=== PATIENT | male | born 1955 | race Caucasian/White ===

== ENCOUNTER 2016-11-01 09:55 | Day surgery (SDC) | payer OTHER ==
[~2016-11-01] VITALS: Ht 183 cm; Wt 122.7 kg
[2016-11-01] VITALS (13 sets, daily range): BP systolic 100–119; BP diastolic 66–86; PULSE 51–123; TEMP 97.8–98.3
[~2016-11-01 09:55] MED LIST: BETAPACE 120MG120 MG PO; CARDIZEM120 MG PO; COUMADIN 5MG5 MG/TAB PO; COUMADIN 77.5 MG/TAB PO; FLOMAX 0.40.4 MG/CAP PO; FLUOROURACIL5% TP; GLUCOSAMINE & C1 CA1 PO; GLUCOSAMINE500 MG PO; HCTZ 25MG TAB25 MG PO; HYDROCORTISO28.35 G1 TOP; LIPITOR 10MG10 MG PO; LIPITOR 40MG TA40 MG PO; MULTAQ400 MG PO; NAFTIN11 TP; NATURAL E400 IU PO; PRADAXA75 MG PO; PRIL40 PO; PRINIVIL40 MG PO; PROBIOTIC FORMU1 CAP PO; PROSCAR 5MG5 MG PO; THERAPEUTIC VIT1 CAP PO; TIAZAC180 MG PO; TIKOSYN0.5 MG PO; TOPROL XL 25MG25 MG PO; VITAMIN E 400 U4001 PO; ZESTRIL 5MG5 MG PO; ZYRTEC 10MG10 MG PO; [UNRECOGNIZED DRUG - OTHER]
[2016-11-01 10:58] LABS: POTASSIUM 4.5 mmol/L (3.4-5.0)
[2016-11-01 11:00] LABS: INR 1.2 (0.8-3.0); PROTHROMBIN TIME 13.3 SECONDS (9.7-12.8)
[2016-11-01 11:31] LABS: THYROID STIMULATING HORMONE 1.74 uIU/mL (0.465-4.680)
== END 2016-11-01 12:34 | disposition home or self-care (01) ==
LOC: EUO 09:55 → COL.RAD 10:15 → EUO 12:34
PROVIDERS: Internal Medicine Cardiovascular Disease
DX: I48.1 Persistent atrial fibrillation (principal); I25.10 Atherosclerotic heart disease of native coronary artery without angina pectoris; Z79.899 Other long term (current) drug therapy; E78.5 Hyperlipidemia, unspecified; I42.9 Cardiomyopathy, unspecified; I34.0 Nonrheumatic mitral (valve) insufficiency; Z86.010 Personal history of colon polyps; M19.90 Unspecified osteoarthritis, unspecified site; Z79.02 Long term (current) use of antithrombotics/antiplatelets
CPT/HCPCS: J2250; J3010

== ENCOUNTER 2017-08-18 07:19 | Day surgery (SDC) | payer OTHER ==
[2017-08-18] VITALS (14 sets, daily range): BP systolic 90–148; BP diastolic 67–98; PULSE 54–114; TEMP 97.6
[~2017-08-18] VITALS: Ht 182.9 cm; Wt 129.0 kg
[2017-08-18 07:56] LABS: INR 1.2 (0.8-3.0); PROTHROMBIN TIME 12.8 SECONDS (9.7-12.8)
[2017-08-18 08:00] LABS: HEMATOCRIT 44.4 % (42.0-52.0); MEAN CELL VOLUME 94 fl (80.0-100.0); MEAN CORPUSCULAR HEMOGLOBIN 32 pg (27.0-31.0); MEAN CORPUSCULAR HGB CONC 34 g/dl (33.0-37.0); MEAN PLATELET VOLUME 9.4 fl (7.4-10.4); PLATELET COUNT 217 K/mm3 (130-400); RED BLOOD COUNT 4.74 M/mm3 (4.20-5.60); WHITE BLOOD COUNT 7.8 K/mm3 (4.8-10.8)
[2017-08-18 08:12] LABS: CALCIUM 9.3 mg/dL (8.4-10.2); CREATININE, serum 0.96 mg/dL (0.66-1.25)
== END 2017-08-18 12:26 | disposition home or self-care (01) ==
LOC: COL.CAR 07:19
PROVIDERS: Internal Medicine Cardiovascular Disease
DX: I48.91 Unspecified atrial fibrillation (principal); I34.0 Nonrheumatic mitral (valve) insufficiency; I25.10 Atherosclerotic heart disease of native coronary artery without angina pectoris; Z79.01 Long term (current) use of anticoagulants; I10 Essential (primary) hypertension; G47.30 Sleep apnea, unspecified; I42.8 Other cardiomyopathies; E66.9 Obesity, unspecified; R00.1 Bradycardia, unspecified
CPT/HCPCS: J2250; J3010

== ENCOUNTER 2018-06-18 09:44 | Day surgery (SDC) | payer OTHER ==
[2018-06-18] VITALS (8 sets, daily range): BP systolic 91–128; BP diastolic 62–89; PULSE 52–89
[~2018-06-18] VITALS: Ht 182.9 cm; Wt 132.8 kg
[2018-06-18 10:12] LABS: POTASSIUM 4.1 mmol/L (3.4-5.0)
[2018-06-18 10:18] LABS: INR 1.2 (0.8-3.0); PROTHROMBIN TIME 13.2 SECONDS (9.7-12.8)
[2018-06-18] MEDS ORDERED: TAMBOCOR50 MG PO (10:37)
[2018-06-18 10:47] LABS: THYROID STIMULATING HORMONE 2.26 uIU/mL (0.465-4.680)
== END 2018-06-18 13:57 | disposition home or self-care (01) ==
LOC: COL.CAR 09:44
PROVIDERS: Internal Medicine Cardiovascular Disease
DX: I48.1 Persistent atrial fibrillation (principal); I25.10 Atherosclerotic heart disease of native coronary artery without angina pectoris; G47.33 Obstructive sleep apnea (adult) (pediatric); I10 Essential (primary) hypertension; I48.0 Paroxysmal atrial fibrillation; K76.0 Fatty (change of) liver, not elsewhere classified; M19.90 Unspecified osteoarthritis, unspecified site; G89.29 Other chronic pain; E66.9 Obesity, unspecified; Z68.38 Body mass index [BMI] 38.0-38.9, adult; Z79.82 Long term (current) use of aspirin; Z79.01 Long term (current) use of anticoagulants; Z82.5 Family history of asthma and other chronic lower respiratory diseases
CPT/HCPCS: J2250; J3010; J7030

== ENCOUNTER 2018-10-16 08:10 | Day surgery (SDC) | payer OTHER ==
[~2018-10-16] VITALS: Ht 182.9 cm; Wt 133.9 kg
[2018-10-16] VITALS (7 sets, daily range): BP systolic 112–123; BP diastolic 72–81; PULSE 77–96; TEMP 98–98.1
[~2018-10-16 08:10] MED LIST changes: +TAMBOCOR50 MG PO
[2018-10-16 09:20] LABS: POTASSIUM 4.4 mmol/L (3.4-5.0)
[2018-10-16 09:55] LABS: THYROID STIMULATING HORMONE 2.38 uIU/mL (0.465-4.680)
[2018-10-16 10:05] LABS: INR 1.2 (0.8-3.0); PROTHROMBIN TIME 13.7 SECONDS (9.7-12.8)
[2018-10-16] MEDS ORDERED: TAMBOCOR150 MG PO (11:12)
== END 2018-10-16 14:24 | disposition home or self-care (01) ==
LOC: COL.CAR 08:10
PROVIDERS: Internal Medicine Cardiovascular Disease
DX: I48.0 Paroxysmal atrial fibrillation (principal); I25.10 Atherosclerotic heart disease of native coronary artery without angina pectoris; I11.9 Hypertensive heart disease without heart failure; I43 Cardiomyopathy in diseases classified elsewhere; G47.33 Obstructive sleep apnea (adult) (pediatric); E66.9 Obesity, unspecified; Z68.39 Body mass index [BMI] 39.0-39.9, adult; E78.5 Hyperlipidemia, unspecified; I05.9 Rheumatic mitral valve disease, unspecified; K76.0 Fatty (change of) liver, not elsewhere classified; Z79.01 Long term (current) use of anticoagulants; Z86.010 Personal history of colon polyps; Z79.899 Other long term (current) drug therapy
CPT/HCPCS: J0690; J2250; J3010; J7030

== ENCOUNTER 2018-10-30 14:54 | Inpatient (IN) | payer OTHER ==
[~2018-10-30] VITALS: Ht 182.9 cm; Wt 130.9 kg
[~2018-10-30 14:54] MED LIST changes: +TAMBOCOR150 MG PO
[2018-11-13] VITALS (789 sets, daily range): BP systolic 116–123; BP diastolic 82–96; PULSE 85–97; TEMP 97.8–98.5; O2SAT 82–100
[2018-11-13] MEDS ORDERED: TAMBOCOR 1100 MG/TAB PO (09:26)
--- NOTE | 2018-11-13 09:45 | NUR ---
Pt arrived ambulatory at 0900 this AM to room 6. Pt undressed into gown and placed on monitor. IV started by AIVS after several failed attempts by nursing staff adn lab was sent. RT called for EKG. Assessment completed and meds reviewed. Pt here for tikosyn initiation and stated has been on before so denies any questions or needs. Will continue to follow.
[2018-11-13 10:31] LABS: CALCIUM 9.4 mg/dL (8.4-10.2); CREATININE, serum 0.97 mg/dL (0.66-1.25); MAGNESIUM 1.9 mg/dL (1.6-2.3); POTASSIUM 4.7 mmol/L (3.4-5.0)
--- NOTE | 2018-11-13 11:15 | NUR ---
Pt given first dose of tikosyn. Will continue to monitor EKG.
--- NOTE | 2018-11-13 13:30 | NUR ---
QTC on EKG remains within defined limits. Will continue to follow.
--- NOTE | 2018-11-13 18:20 | NUR ---
Pt remains resting at this time. Denies any needs or concerns. Will continue to follow.
--- NOTE | 2018-11-13 19:10 | NUR ---
RECEIVED REPORT AT BEDSIDE FROM MAGGIE CHERRY.
--- NOTE | 2018-11-13 22:45 | NUR ---
EKG DONE, QTC OF 464. WILL CONTINUE TO MONITOR.
[2018-11-14] VITALS (728 sets, daily range): BP systolic 102–132; BP diastolic 70–95; PULSE 74–140; TEMP 97.7–98.6; O2SAT 84–100
[2018-11-14 05:11] LABS: BASO % 0.6 % (0.0-2.0); EOS # 0.2 (0.0-0.7); EOS % 3.1 % (0-4.0); GRAN # 3.9 (1.4-6.5); GRAN % 58.8 % (42.2-75.2); HEMATOCRIT 44.8 % (42.0-52.0); HEMOGLOBIN 14.8 g/dl (13.5-18.0); LYMPH # 1.8 (1.2-3.4); LYMPH % 27.4 % (20.0-51.0); MEAN CELL VOLUME 94 fl (80.0-100.0); MEAN CORPUSCULAR HEMOGLOBIN 31 pg (27.0-31.0); MEAN CORPUSCULAR HGB CONC 33 g/dl (33.0-37.0); MEAN PLATELET VOLUME 9.3 fl (7.4-10.4); MONO # 0.6 (0.1-0.6); MONO % 9.8 % (1.7-9.3); PLATELET COUNT 217 K/mm3 (130-400); RED BLOOD COUNT 4.76 M/mm3 (4.20-5.60); REDCELL DISTRIBUTION WIDTH-CV 12.6 % (11.5-14.5)
[2018-11-14 05:24] LABS: CALCIUM 9.2 mg/dL (8.4-10.2); CREATININE, serum 0.93 mg/dL (0.66-1.25); MAGNESIUM 1.9 mg/dL (1.6-2.3); POTASSIUM 4.4 mmol/L (3.4-5.0)
--- NOTE | 2018-11-14 05:31 | NUR ---
PT'S BP AT 72/51 [facility] AT 0500, RECEHCEKED AT 0520 AND BP WAS 110/66. PT ASYMPTOMATIC AND DENIES ANY PAIN, DIZZINESS OR LIGHT HEADEDNESS. THIS RN NOTICED THAT PT'S BP DROPS AFTER GOING TO THE BATHROOM AND GOES BACK TO NORMAL ONCE PT IS SETTLED BACK TO BED. WILL PASS THIS ALONG TO DAY SHIFT RN. WILL CONTINUE TO MONITOR.
--- NOTE | 2018-11-14 07:05 | NUR ---
report given at bedside to MAGGIE Hutson.
--- NOTE | 2018-11-14 07:30 | NUR ---
INITIAL ASSESSMENT COMPLETED. PATIENT SITTING IN BED AWAKE. BREAKFAST HAS BEEN ORDERED. HE DENIES ANY PAIN OR NEEDS AT THIS TIME.
--- NOTE | 2018-11-14 13:10 | NUR ---
REPORT CALLED TO MAGGIE FRANCIS ON MEDICAL. PATIENT WILL BE TAKEN BY WHEELCHAIR TO ROOM 317. PORTABLE TELEMTRY PLACED. ALL BELONGINGS WERE GATHERED. PENNY WAS NOTIFIED OF PATIENT'S ARRIVAL. ALL QUESTIONS ANSWERED.
--- NOTE | 2018-11-14 14:00 | NUR ---
PATIENT ADMITTED TO ROOM 317. HE IS ORIENTED TO THIS ROOM. LUNCH IS ORDERED. DENIES OTHER NEEDS
--- NOTE | 2018-11-14 14:40 | NUR ---
TELE CALLED IN REGARDS TO TACHYCARDIA. PATIENT WAS SITING AT THE SIDE OF THE BED FINISHING LUNCH. HE HAS LAYED DOWN AND DENIES CHEST PAIN, DIZZINESS OR SOB AT THIS TIME.
--- NOTE | 2018-11-14 15:30 | NUR ---
CONTACTED DR. CAMILO WITH AN UPDATE OF TELE FINDINGS. PATIENT CONTINUES DECLINE SOB OR CHEST PAIN. NO NEW ORDERS AT THIS TIME.
--- NOTE | 2018-11-14 23:46 | NUR ---
Completed medication administration and assessment; PT tolerated cares well. PT continues to experience irregular HR or AFib without symptoms; PT denies pain or discomfort at time of assessment. PT pending cardioversion 11/16; A&Ox3, able to communicate needs and concerns; PT denies pain or discomfort; Call light placed within reach; Tikosyn administered at 2155 and RT notified for EKG follow up needs; Will continue to monitor. CDA
[2018-11-15 04:12] VITALS: BP 118/56; PULSE 66
--- NOTE | 2018-11-15 06:16 | NUR ---
PT tolerated medications well in evening; CPAP delivered from RT prior to medication administration. PT denied further needs or pain at time of exit. PT continues to be IND in room. EKG completed 2hrs post medication administration; AFib continues with QTc of 480 and HR variation between 90-120 throughout the night. Call light placed within reach; Pending report to dayshift. CDA
[2018-11-15 08:25] VITALS: BP 119/77; PULSE 47; TEMP 97.7
[2018-11-15 08:55] LABS: BASO % 0.6 % (0.0-2.0); EOS # 0.2 (0.0-0.7); EOS % 2.8 % (0-4.0); GRAN # 4.3 (1.4-6.5); GRAN % 60.8 % (42.2-75.2); HEMATOCRIT 45.3 % (42.0-52.0); HEMOGLOBIN 15.4 g/dl (13.5-18.0); LYMPH # 1.8 (1.2-3.4); LYMPH % 25.6 % (20.0-51.0); MEAN CELL VOLUME 93 fl (80.0-100.0); MEAN CORPUSCULAR HEMOGLOBIN 32 pg (27.0-31.0); MEAN CORPUSCULAR HGB CONC 34 g/dl (33.0-37.0); MEAN PLATELET VOLUME 9.5 fl (7.4-10.4); MONO # 0.7 (0.1-0.6); MONO % 9.9 % (1.7-9.3); PLATELET COUNT 216 K/mm3 (130-400); RED BLOOD COUNT 4.89 M/mm3 (4.20-5.60); REDCELL DISTRIBUTION WIDTH-CV 12.6 % (11.5-14.5)
[2018-11-15 09:05] LABS: CALCIUM 9.4 mg/dL (8.4-10.2); CREATININE, serum 0.99 mg/dL (0.66-1.25); MAGNESIUM 1.9 mg/dL (1.6-2.3); POTASSIUM 4.4 mmol/L (3.4-5.0)
--- NOTE | 2018-11-15 09:45 | NUR ---
PATIENT ASSESSMENT COMPLETED. HE DENIES ANY PAIN OR SOB. SITTING AT SIDE OF BED. HE DID REPORT THAT HE DID GO FOR A WALK AROUND THE HALLS AROUND 0600, TOLERATED WELL
[2018-11-15 11:40] VITALS: BP 197/58; PULSE 63; TEMP 97.8
--- NOTE | 2018-11-15 11:50 | NUR ---
Patient lives at home with his (Donita Aponte) in [place], [place] and plans to return home upon discharge. Patient is independent with daily living activities and has no anticipated durable medical equipment needs, his primary care physicians and pharamcy care are provided by [facility], and he does not have advance directives completed at this time. Patient works full-time for [employer] with [employer]. No further needs at this time and licensed social worker will follow as needed.
[2018-11-15 15:45] VITALS: BP 98/76; PULSE 63; TEMP 97.8
--- NOTE | 2018-11-15 16:39 | NUR ---
PATIENT RESTING IN BED VISITING WITH FAMILY AT BEDSIDE. HE DENIES ANY PAIN OR NEEDS.
[2018-11-15 19:22] VITALS: BP 97/64; PULSE 97; TEMP 98.3
[2018-11-15 23:18] VITALS: BP 92/67; PULSE 84; TEMP 97.9
[2018-11-16] VITALS (8 sets, daily range): BP systolic 91–116; BP diastolic 55–81; PULSE 51–90; TEMP 97.3
--- NOTE | 2018-11-16 00:20 | NUR ---
Completed assessment and medication administration with PT; All tolereated well; Discussed possible procedure 11/16/18 if AFib continues post medication administration in AM. PT A&Ox3, BS active x4, IND in room, PT denies concens or needs at time of exit; call light placed within reach; Will continue to monitor. CDA
[2018-11-16 06:09] LABS: BASO # 0.1 (0.0-0.2); BASO % 0.7 % (0.0-2.0); EOS # 0.2 (0.0-0.7); EOS % 3.2 % (0-4.0); GRAN # 4.5 (1.4-6.5); GRAN % 59.2 % (42.2-75.2); HEMATOCRIT 43.4 % (42.0-52.0); HEMOGLOBIN 14.7 g/dl (13.5-18.0); LYMPH # 2.1 (1.2-3.4); LYMPH % 27.4 % (20.0-51.0); MEAN CELL VOLUME 93 fl (80.0-100.0); MEAN CORPUSCULAR HEMOGLOBIN 32 pg (27.0-31.0); MEAN CORPUSCULAR HGB CONC 34 g/dl (33.0-37.0); MEAN PLATELET VOLUME 9.7 fl (7.4-10.4); MONO # 0.7 (0.1-0.6); MONO % 9.2 % (1.7-9.3); PLATELET COUNT 204 K/mm3 (130-400); RED BLOOD COUNT 4.66 M/mm3 (4.20-5.60); REDCELL DISTRIBUTION WIDTH-CV 12.4 % (11.5-14.5)
[2018-11-16 06:20] LABS: CALCIUM 9.3 mg/dL (8.4-10.2); CREATININE, serum 1.08 mg/dL (0.66-1.25); MAGNESIUM 1.8 mg/dL (1.6-2.3); POTASSIUM 4.2 mmol/L (3.4-5.0)
--- NOTE | 2018-11-16 07:25 | NUR ---
PT tolerated cares and medications well; PT rested well with CPAP in place during evening. Results of EKG post medication at 2300 was QTc 456 and repeat EKG at 0500 was QTc 452. PT continues to be in AFIb and will be cardioverted; PT denies further needs at time of exit; Call light placed within reach; Report given to MAGGIE Barone. CDA
--- NOTE | 2018-11-16 07:35 | NUR ---
Patient is alert and oriented, laying in bed. Denies pain. Voiding adequately and reports passing gas. IV flushes well. Tele monitoring, VSS. Call light within reach and will continue to monitor.
--- NOTE | 2018-11-16 07:49 | NUR ---
Patient transported to [facility] for cardioversion. Consent signed with [facility] RN.
--- NOTE | 2018-11-16 08:19 | NUR ---
ALL MEDS GIVEN VIA VERBAL WITH READBACK FROM DR. SVITLANA CURRY FOR ADMIN TIMES. AFIB CONFIRMED PRIOR TO PROCEDURE.
[2018-11-16] MEDS ORDERED: TIKOSYN0.5 MG PO (08:46)
--- NOTE | 2018-11-16 08:50 | NUR ---
Patient returned from cardioversion and is very sleepy. Oriented x4. Denies pain. Post-op VSS. Call light within reach and will continue to monitor.
--- NOTE | 2018-11-16 13:36 | NUR ---
Discharge instructions reviewed with patient. Denies questions and verbalizes understanding of instructions. IV removed, no complications. Patient escorted out with [employer].
== END 2018-11-16 13:37 | disposition home or self-care (01) | DRG 310 ==
LOC: ICU 11-13 08:52 → MEDICAL 11-13 14:47
PROVIDERS: ADMIT Internal Medicine Cardiovascular Disease
PROC: 5A2204Z Restoration of Cardiac Rhythm, Single (ICD-10-PCS; principal; 2018-11-16)
DX: I48.1 Persistent atrial fibrillation (principal); I25.10 Atherosclerotic heart disease of native coronary artery without angina pectoris; I42.9 Cardiomyopathy, unspecified; E78.5 Hyperlipidemia, unspecified; Z79.01 Long term (current) use of anticoagulants; Z23 Encounter for immunization; K76.0 Fatty (change of) liver, not elsewhere classified; E66.9 Obesity, unspecified; Z68.39 Body mass index [BMI] 39.0-39.9, adult; G89.29 Other chronic pain; I05.9 Rheumatic mitral valve disease, unspecified
CPT/HCPCS: J2250; J3010

== ENCOUNTER 2019-07-08 07:55 | Day surgery (SDC) | payer OTHER ==
[~2019-07-08] VITALS: Ht 182.9 cm; Wt 130.2 kg
[~2019-07-08 07:55] MED LIST changes: +TAMBOCOR 1100 MG/TAB PO
[2019-07-08 08:30] VITALS: BP 116/82; PULSE 78; TEMP 97.6
[2019-07-08 08:39] LABS: INR 1.3 (0.8-3.0); PROTHROMBIN TIME 14.8 SECONDS (9.7-12.8)
[2019-07-08 08:43] LABS: POTASSIUM 4.3 mmol/L (3.4-5.0)
[2019-07-08] MEDS ORDERED: TIKOSYN0.5 MG PO (08:43)
--- NOTE | 2019-07-08 09:08 | NUR ---
Dr. Snell at bedside.
[2019-07-08 09:33] LABS: THYROID STIMULATING HORMONE 3.08 uIU/mL (0.465-4.680)
[2019-07-08 10:00] VITALS: BP 102/85; PULSE 53
--- NOTE | 2019-07-08 10:06 | NUR ---
Patient care assumed from Ghassan RN. PT is resting on stretcher with hob elevated 30deg, he is awake and oriented, p,w,d, sr 40's-50's on monitor. pt aware of poc for monitoring prior to dc. EKG being obtained at this time by RT. is at bs.
[2019-07-08 10:15] VITALS: BP 102/71; PULSE 56
[2019-07-08 10:30] VITALS: BP 103/69; PULSE 50
[2019-07-08 10:45] VITALS: BP 110/66; PULSE 49
[2019-07-08 11:00] VITALS: BP 113/71; PULSE 47
--- NOTE | 2019-07-08 11:25 | NUR ---
Discharge instructions given to pt.Pt verbalizes understanding.INt removed,catheter tip intact.pt escorted out by Student Nurse via wheelchair.
== END 2019-07-08 13:08 | disposition home or self-care (01) ==
LOC: COL.CAR 07:55
PROVIDERS: Internal Medicine Cardiovascular Disease
DX: I48.1 Persistent atrial fibrillation (principal); I25.10 Atherosclerotic heart disease of native coronary artery without angina pectoris; K76.0 Fatty (change of) liver, not elsewhere classified; E66.9 Obesity, unspecified; M19.90 Unspecified osteoarthritis, unspecified site; G89.29 Other chronic pain; I42.9 Cardiomyopathy, unspecified; I47.2 Ventricular tachycardia; Z88.6 Allergy status to analgesic agent; Z88.8 Allergy status to other drugs, medicaments and biological substances; Z79.899 Other long term (current) drug therapy; Z82.5 Family history of asthma and other chronic lower respiratory diseases; Z81.8 Family history of other mental and behavioral disorders
CPT/HCPCS: J2704; J7030

== ENCOUNTER 2021-05-17 17:29 | Emergency (ER) | payer MEDICARE, OTHER ==
[~2021-05-17] VITALS: Ht 182.9 cm; Wt 120.5 kg
[2021-05-17 17:54] VITALS: TEMP 98.7
[2021-05-17 18:22] LABS: BASO % 0.3 % (0.0-2.0); EOS # 0.1 (0.0-0.7); EOS % 1.1 % (0-4.0); GRAN # 7.4 (1.4-6.5); GRAN % 69.9 % (42.2-75.2); HEMATOCRIT 43.5 % (42.0-52.0); HEMOGLOBIN 14.2 g/dl (13.5-18.0); LYMPH # 1.6 (1.2-3.4); LYMPH % 14.7 % (20.0-51.0); MEAN CELL VOLUME 95 fl (80.0-100.0); MEAN CORPUSCULAR HEMOGLOBIN 31 pg (27.0-31.0); MEAN CORPUSCULAR HGB CONC 33 g/dl (33.0-37.0); MEAN PLATELET VOLUME 9.9 fl (7.4-10.4); MONO # 1.4 (0.1-0.6); MONO % 13.6 % (1.7-9.3); PLATELET COUNT 254 K/mm3 (130-400); RED BLOOD COUNT 4.57 M/mm3 (4.20-5.60); REDCELL DISTRIBUTION WIDTH-CV 12.6 % (11.5-14.5)
[2021-05-17 18:33] LABS: ALANINE AMINOTRANSFERASE 32 U/L (4-49); ALKALINE PHOSPHATASE 110 U/L (50-136); ANION GAP 7 mmol/L (7-16); AST,SGOT 52 U/L (15-37); BILIRUBIN,TOTAL 1.1 mg/dL (0.0-1.0); BLOOD UREA NITROGEN 21 mg/dL (9-20); CALCIUM 9.4 mg/dL (8.4-10.2); CARBON DIOXIDE 27 mmol/L (22-30); CHLORIDE 105 mmol/L (98-107); CREATININE, serum 0.93 (0.66-1.25); GLUCOSE 105 mg/dL (74-106); POTASSIUM 4.3 mmol/L (3.4-5.0); SODIUM 140 mmol/L (137-145); TOTAL PROTEIN 7.6 gm/dL (6.4-8.2)
[2021-05-17 18:39] LABS: INR 1.3 (0.8-3.0)
[2021-05-17 18:54] LABS: TROPONIN-I < 0.012 ng/mL (0.000-0.035)
[2021-05-18] MEDS ORDERED: ASPIRIN 81M81 MG/TA2 PO (00:30)
[2021-05-18 05:13] LABS: BASO % 0.5 % (0.0-2.0); EOS # 0.2 (0.0-0.7); EOS % 1.9 % (0-4.0); GRAN # 5.6 (1.4-6.5); GRAN % 69.2 % (42.2-75.2); HEMATOCRIT 39.2 % (42.0-52.0); HEMOGLOBIN 12.5 g/dl (13.5-18.0); LYMPH # 1.2 (1.2-3.4); LYMPH % 14.6 % (20.0-51.0); MEAN CELL VOLUME 98 fl (80.0-100.0); MEAN CORPUSCULAR HEMOGLOBIN 31 pg (27.0-31.0); MEAN CORPUSCULAR HGB CONC 32 g/dl (33.0-37.0); MEAN PLATELET VOLUME 9.5 fl (7.4-10.4); MONO # 1.1 (0.1-0.6); MONO % 13.4 % (1.7-9.3); PLATELET COUNT 218 K/mm3 (130-400); RED BLOOD COUNT 3.99 M/mm3 (4.20-5.60); REDCELL DISTRIBUTION WIDTH-CV 12.6 % (11.5-14.5)
[2021-05-18 05:25] LABS: CALCIUM 8.5 mg/dL (8.4-10.2); CREATININE, serum 0.79 (0.66-1.25); POTASSIUM 4.2 mmol/L (3.4-5.0)
[2021-05-18] MEDS ORDERED: PRADAXA 150MG150 MG PO (11:38)
[2021-05-18] MEDS ORDERED: TIKOSYN0.25 MG PO (11:38)
[2021-05-18] MEDS ORDERED: DOXYCYCLINE 10100 MG PO (12:50)
[2021-05-18 13:25] VITALS: BP 111/66; PULSE 55
== END 2021-05-18 13:40 | disposition home or self-care (01) ==
LOC: COL.ER 17:29
PROVIDERS: Nurse Practitioner; Nurse Practitioner Family
DX: I48.20 Chronic atrial fibrillation, unspecified (principal); I25.10 Atherosclerotic heart disease of native coronary artery without angina pectoris; Z79.82 Long term (current) use of aspirin; Z95.818 Presence of other cardiac implants and grafts
CPT/HCPCS: 99223-AI; J2270; J2543; J2704; J3010; J3475; J7030; Q9967

== ENCOUNTER 2021-07-26 05:52 | Day surgery (SDC) | payer MEDICARE, OTHER ==
[~2021-07-26] VITALS: Ht 182.9 cm; Wt 122.1 kg
[~2021-07-26 05:52] MED LIST changes: +ASPIRIN 81M81 MG/TA2 PO; +DOXYCYCLINE 10100 MG PO; +PRADAXA 150MG150 MG PO; +TIKOSYN0.25 MG PO
[2021-07-26 07:01] LABS: HEMOGLOBIN 14.5 g/dl (13.5-18.0); MEAN CELL VOLUME 91 fl (80.0-100.0); MEAN CORPUSCULAR HEMOGLOBIN 32 pg (27.0-31.0); MEAN CORPUSCULAR HGB CONC 35 g/dl (33.0-37.0); MEAN PLATELET VOLUME 9.4 fl (7.4-10.4); PLATELET COUNT 195 K/mm3 (130-400); RED BLOOD COUNT 4.61 M/mm3 (4.20-5.60)
[2021-07-26 07:02] VITALS: BP 147/104; PULSE 77; TEMP 98.2
[2021-07-26 07:11] LABS: INR 1.1 (0.8-3.0); PROTHROMBIN TIME 12.7 SECONDS (9.7-12.8)
[2021-07-26 07:14] LABS: PARTIAL THROMBOPLASTIN TIME 32.6 SECONDS (26.0-37.0)
[2021-07-26 07:17] LABS: CREATININE, serum 0.85 mg/dL (0.72-1.25); MAGNESIUM 1.8 mg/dL (1.6-2.6)
[2021-07-26 07:38] LABS: THYROID STIMULATING HORMONE 2.527 uIU/mL (0.350-4.940)
[2021-07-26] MEDS ORDERED: ASPIRIN 81M81 MG/TA2 PO (07:58)
[2021-07-26] MEDS ORDERED: TIKOSYN0.25 MG PO (08:34)
[2021-07-26 08:35] VITALS: BP 121/83; PULSE 51
[2021-07-26 09:15] VITALS: BP 125/54; PULSE 48
[2021-07-26 09:30] VITALS: BP 135/87; PULSE 49
--- NOTE | 2021-07-26 09:45 | NUR ---
Discharge instructions given to pt.Pt verbalizes understanding.INT removed,catheter tip intact.Pt escorted out by student nurse.
[2021-07-26 09:57] VITALS: BP 121/83; PULSE 49
== END 2021-07-26 09:59 ==
LOC: COL.CAR 05:52
PROVIDERS: Internal Medicine Cardiovascular Disease
DX: I48.0 Paroxysmal atrial fibrillation (principal); I25.10 Atherosclerotic heart disease of native coronary artery without angina pectoris; I42.9 Cardiomyopathy, unspecified; I48.19 Other persistent atrial fibrillation; K76.0 Fatty (change of) liver, not elsewhere classified; G89.29 Other chronic pain; E66.9 Obesity, unspecified; M47.817 Spondylosis without myelopathy or radiculopathy, lumbosacral region; M19.90 Unspecified osteoarthritis, unspecified site; I42.8 Other cardiomyopathies; I34.9 Nonrheumatic mitral valve disorder, unspecified; I47.2 Ventricular tachycardia; I77.819 Aortic ectasia, unspecified site; J45.20 Mild intermittent asthma, uncomplicated; Z79.01 Long term (current) use of anticoagulants; Z79.82 Long term (current) use of aspirin; Z20.822 Contact with and (suspected) exposure to COVID-19; Z79.899 Other long term (current) drug therapy; Z85.828 Personal history of other malignant neoplasm of skin
CPT/HCPCS: J2704

== ENCOUNTER 2022-01-23 08:17 | Day surgery (SDC) | payer MEDICARE, OTHER ==
[2022-01-23] VITALS (30 sets, daily range): BP systolic 118–133; BP diastolic 75–101; PULSE 53–124; TEMP 98–98.5; O2SAT 96–100
[2022-01-23 09:01] LABS: HEMATOCRIT 43.1 % (42.0-52.0); HEMOGLOBIN 14.9 g/dl (13.5-18.0); MEAN CELL VOLUME 92 fl (80.0-100.0); MEAN CORPUSCULAR HEMOGLOBIN 32 pg (27-31); MEAN CORPUSCULAR HGB CONC 35 g/dl (33.0-37.0); MEAN PLATELET VOLUME 9.7 fl (7.4-10.4); PLATELET COUNT 196 K/mm3 (130-400); RED BLOOD COUNT 4.68 M/mm3 (4.20-5.60); REDCELL DISTRIBUTION WIDTH-CV 12.8 % (11.5-14.5)
[2022-01-23 09:08] LABS: INR 1.2 (0.8-3.0); PROTHROMBIN TIME 13.2 SECONDS (9.7-12.8)
[2022-01-23 09:11] LABS: PARTIAL THROMBOPLASTIN TIME 31.8 SECONDS (26.0-37.0)
[2022-01-23 09:21] LABS: CREATININE, serum 0.88 mg/dL (0.72-1.25); MAGNESIUM 1.7 mg/dL (1.6-2.6); POTASSIUM 4.1 mmol/L (3.5-4.5)
[2022-01-23 09:41] LABS: THYROID STIMULATING HORMONE 1.788 uIU/mL (0.350-4.940)
[2022-01-23] MEDS ORDERED: TIKOSYN0.5 MG PO (10:50)
--- NOTE | 2022-01-23 11:41 | NUR ---
Pt tolerated cardioversion well, vital signs remained stable; pt and verbalized comfort in discharging home; discharge instructions and education given to and pt at bedside, both verbalized understanding; PIV discontinued at 1110; discharged via wheelchair to private vehicle at 1125.
== END 2022-01-23 11:25 | disposition home or self-care (01) ==
LOC: COL.CAR 08:17
PROVIDERS: Internal Medicine Cardiovascular Disease
DX: I48.19 Other persistent atrial fibrillation (principal); E78.5 Hyperlipidemia, unspecified; I42.8 Other cardiomyopathies; I05.9 Rheumatic mitral valve disease, unspecified; M25.50 Pain in unspecified joint; Z79.899 Other long term (current) drug therapy; Z79.82 Long term (current) use of aspirin; Z98.890 Other specified postprocedural states
CPT/HCPCS: J2704; J7120